=== PATIENT | male | born 2005 | race African-American/Black ===

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

== ENCOUNTER 2023-01-04 11:44 | Emergency (ER) | payer OTHER, SELFPAY ==
[2023-01-04 12:09] VITALS: BP 117/71; PULSE 73; RESP 16; TEMP 36.6; O2SAT 97; BMI 26.7
--- NOTE | 2023-01-04 12:09 | ED_ITS ---
HPI - Abdominal Pain General Chief Complaint: Abdominal Pain Stated Complaint: Constipated X 4 Days Time Seen by Provider: 01/04/23 13:21 Related Data Previous Rx's Medication Instructions Recorded doxycycline hyclate 100 mg tablet 100 mg PO BID 7 days #14 tabs 11/06/22 ibuprofen 600 mg tablet 600 mg PO Q6H PRN pain #14 tabs 12/06/22 dicyclomine 20 mg tablet 20 mg PO TID PRN abdominal pain 12/18/22 #20 tabs magnesium citrate 300 ml PO ONCE #296 mL 01/04/23 polyethylene glycol 3350 17 gram 17 g PO BEDTIME #14 ea 01/04/23 oral powder packet (Miralax) Allergies Allergy/AdvReac Type Severity Reaction Status Date / Time No Known Allergies Allergy Verified 12/06/22 14:36 [facility] Social History Social History Alcohol intake: never Smoked in Last 30 Days: No Use of substances other than those prescribed or required for medical reasons: No Advance Directives: No Advance Directives Information Provided: No Physical Exam ED Vital Signs: BMI result Body Mass Index 26.7 Course Course Course Narrative: RME - 17 yo male presents to the ER with lower abdominal pain and constipation for the last 4 days. He reports blood in the bowl x1 when he was straining yesterday. Passed a small amount of hard stool yesterday. No vomiting. No hx hemorrhoids. Normal bowel sounds and abd soft in triage. Will get rectal exam in the main ER, most likely hemorrhoids associated w/ constipation. Hold off on labs and imaging for now, can defer to main ER provider. Medical Decision Making Lab Data Labs: Lab Results 01/04/23 Range/Units 13:56 Stool Occult Blood NEGATIVE (NEGATIVE) Discharge Plan Discharge Clinical Impression: Constipation Patient Disposition: Home, Self-Care Instructions: Constipation (ED) Additional Instructions: Take MiraLax every night before bed for the next 2 weeks. Take magnesium citrate, the entire bottle in 1 day. Increase fiber intake through diet or supplementation Increased water intake Return for new or worsening symptoms, especially fevers, or severe abdominal pain Prescriptions: New polyethylene glycol 3350 [Miralax] 17 gram powder in packet 17 g PO BEDTIME Qty: 14 0RF magnesium citrate Solution 300 ml PO ONCE Qty: 296 0RF No Action ibuprofen 600 mg tablet 600 mg PO Q6H PRN (Reason: pain) Qty: 14 0RF dicyclomine 20 mg tablet 20 mg PO TID PRN (Reason: abdominal pain) Qty: 20 0RF doxycycline hyclate 100 mg tablet 100 mg PO BID 7 Days Qty: 14 0RF Stand Alone Forms: Work/School Release Interventions: ED Discharge Assessment Last Done: 01/04/23 14:26 Discharge Date/Time: 01/04/23 14:27
[2023-01-04 13:23] VITALS: BP 131/64; PULSE 68; RESP 16; TEMP 36.3; O2SAT 99
--- NOTE | 2023-01-04 13:55 | ED_ITS ---
HPI - General Adult General Chief complaint: Abdominal Pain Stated complaint: Constipated X 4 Days Time Seen by Provider: 01/04/23 13:21 Source: patient and RN notes reviewed Mode of arrival: ambulatory Limitations: no limitations History of Present Illness HPI narrative: 17-year-old male who denies any past medical history presents for evaluation of constipation. Patient reports he has felt constipated for the last 4 days He reports he is able to have a small bowel movement yesterday he noticed a small amount of blood on toilet paper when wiping reports mild 2/10 left lower abdominal pain Denies any rectal pain Any fevers, chills and diarrhea He took [id number] Senna without relief of his symptoms Denies any receptive anal sex Related Data Previous Rx's Medication Instructions Recorded doxycycline hyclate 100 mg tablet 100 mg PO BID 7 days #14 tabs 11/06/22 ibuprofen 600 mg tablet 600 mg PO Q6H PRN pain #14 tabs 12/06/22 dicyclomine 20 mg tablet 20 mg PO TID PRN abdominal pain 12/18/22 #20 tabs magnesium citrate 300 ml PO ONCE #296 mL 01/04/23 polyethylene glycol 3350 17 gram 17 g PO BEDTIME #14 ea 01/04/23 oral powder packet (Miralax) Allergies Allergy/AdvReac Type Severity Reaction Status Date / Time No Known Allergies Allergy Verified 12/06/22 14:36 Review of Systems Constitutional: Constitutional: Reports as per HPI, Denies chills and Denies fatigue Cardiovascular: Cardiovascular: Denies chest pain and Denies dyspnea Respiratory: Respiratory: Denies cough and Denies dyspnea Gastrointestinal: Gastrointestinal: Reports abdominal pain, Reports constipation and Denies vomiting Genitourinary: Genitourinary: Denies difficulty urinating and Denies dysuria Endocrine: Endocrine: Denies fatigue [facility] Social History Social History Alcohol intake: never Smoked in Last 30 Days: No Use of substances other than those prescribed or required for medical reasons: No Advance Directives: No Advance Directives Information Provided: No Physical Exam ED Vital Signs: Vital Signs - 24 hr 01/04/23 12:09 01/04/23 13:23 Temperature 97.9 F 97.3 F Pulse Rate 73 68 Respiratory Rate 16 16 Blood Pressure 117/71 131/64 Pulse Oximetry 97 99 Oxygen Delivery Method Room Air Room Air BMI result Body Mass Index 26.7 Const General: healthy appearing, comfortable, no acute distress, alert and awake Nutritional Appearance: well nourished Orientation/consciousness: patient oriented x3 Eyes Eyelids: Yes eyelids normal Conjunctivae: conjunctivae normal Sclerae: sclerae normal Corneas: corneas normal Pupils: Equal, round and reactive pupils present EOM: EOMs intact bilaterally Resp Effort & Inspection: normal respiratory effort, able to speak in complete sentences, no audible wheezes and not labored GI Inspection: Yes normal to inspection Palpation (GI): Soft to palpation, Tenderness to palpation present (GI) in the LLQ; not in the RLQ, not in the LUQ, not in the RUQ, not at McBurney's point, Trotter's sign negative, with no rebound tenderness and Rovsing's sign negative and no guarding Auscultation: normal bowel sounds Rectal Exam - Male: Yes visual inspection normal, Yes normal sphincter tone, No External hemorrhoid(s) present and No fecal impaction Skin General skin exam: no rashes or lesions noted and elasticity normal Lesions: no lesions Rashes: no rashes Neuro General: patient oriented x3 Cranial nerves: Yes Equal, round and reactive pupils present Extrem General: Yes full ROM Medical Decision Making Medical Decision Making MDM Narrative: This is a 17-year-old male who denies any past medical history presents for evaluation of reported constipation for last 4 days. He reports a small amount of blood when wiping. There is no obvious: Exam: No external hemorrhoids, no palpable lesion the rectal exam. Patient does have mild left lower quadrant abdominal tenderness otherwise abdomen is soft nondistended. He has no rebound or guarding. No fevers or chills, though signs are stable. An occult blood stool sample was sent to the lab to evaluate for rectal bleeding. Clinically the patient likely has simple constipation with possibly some proctitis from straining to use the bathroom but there is no evidence of external hemorrhoids. And very low suspicion for diverticulitis/colitis his incision has no diarrhea, mild symptoms, reassuring abdominal exam he is afebrile. No right lower quadrant tenderness to raise suspicion for acute appendicitis. Patient's stool sample is negative. We ronak discharge the patient with miralax and magnesium citrate Differential Diagnosis Differential Diagnoses: The differential diagnosis associated with the presentation includes (Constipation,colitis, diverticulitis, fecal infection, proctitis, hemorrhoids) Constipation Lab Data Labs: Lab Results 01/04/23 Range/Units 13:56 Stool Occult Blood NEGATIVE (NEGATIVE) Discharge Plan Discharge Clinical Impression: Constipation Patient Disposition: Home, Self-Care Instructions: Constipation (ED) Additional Instructions: Take MiraLax every night before bed for the next 2 weeks. Take magnesium citrate, the entire bottle in 1 day. Increase fiber intake through diet or supplementation Increased water intake Return for new or worsening symptoms, especially fevers, or severe abdominal pain Prescriptions: New polyethylene glycol 3350 [Miralax] 17 gram powder in packet 17 g PO BEDTIME Qty: 14 0RF magnesium citrate Solution 300 ml PO ONCE Qty: 296 0RF No Action ibuprofen 600 mg tablet 600 mg PO Q6H PRN (Reason: pain) Qty: 14 0RF dicyclomine 20 mg tablet 20 mg PO TID PRN (Reason: abdominal pain) Qty: 20 0RF doxycycline hyclate 100 mg tablet 100 mg PO BID 7 Days Qty: 14 0RF
[2023-01-04 14:03] LABS: OBS Int Ctl Valid YES; OBS1 NEGATIVE (NEGATIVE)
== END 2023-01-04 14:27 | disposition home or self-care (01) ==
PROVIDERS: Physician Assistant; Emergency Provider Emergency Medicine
DX: K59.00 Constipation, unspecified (principal)
CPT/HCPCS: 82272; 99283; 99284

== ENCOUNTER 2023-03-13 02:24 | Emergency (ER) | payer MEDICAID, SELFPAY ==
[2023-03-13 02:30] VITALS: BP 118/71; PULSE 58; RESP 14; TEMP 36.8; O2SAT 100; BMI 27.1
--- NOTE | 2023-03-13 02:44 | ED_ITS ---
HPI - General Adult General Chief complaint: Upper Respiratory Symptoms Stated complaint: elizabeth is brown Time Seen by Provider: 03/13/23 02:32 Source: patient Mode of arrival: ambulatory Limitations: no limitations History of Present Illness HPI narrative: 88-year-old male presents with brown mucus production. Symptoms started 3 weeks ago. He had been treated with amoxicillin. Symptoms have been consistent on a daily basis for the past 3 weeks. He reports sinus drainage, postnasal drip, occasional green mucus. Denies any fevers or chills. Occasionally has a cough. He denies any chest pain. He reports some sinus pressure in the maxillary area. The pressure is [id number] nature. There is no clear relieving or exacerbating features. Symptoms do not radiate. Related Data Home Medications Medication Instructions Recorded Confirmed amitriptyline 10 mg tablet 10 mg PO BEDTIME 01/21/23 naproxen 500 mg tablet 500 mg PO BID 01/21/23 Previous Rx's Medication Instructions Recorded amoxicillin 875 mg-potassium 1 tab PO BID #14 tabs 03/13/23 clavulanate 125 mg tablet fexofenadine 180 mg tablet 180 mg PO DAILY #10 tabs 03/13/23 (Irma Allergy) fluticasone propionate 50 1 spray intranasal DAILY #16 grams 03/13/23 mcg/actuation nasal spray,suspension (Flonase Allergy Relief) pseudoephedrine HCl 120 mg 120 mg PO Q12H PRN nasal 03/13/23 tablet,extended release (Sudafed congestion #14 tabs 12 Hour) Allergies Allergy/AdvReac Type Severity Reaction Status Date / Time No Known Allergies Allergy Verified 03/13/23 02:35 [facility] Past Medical History Medical History Hydrocele Social History Social History Alcohol intake: never Advance Directives: No Advance Directives Information Provided: Yes Physical Exam ED Vital Signs: Vital Signs - 24 hr 03/13/23 02:30 Temperature 98.2 F Pulse Rate 58 Respiratory Rate 14 Blood Pressure 118/71 Pulse Oximetry 100 Oxygen Delivery Method Room Air BMI result Body Mass Index 27.1 GEN: Well developed, no acute distress, alert, oriented HEENT: Normocephalic, atraumatic, normal external ears, nose appears normal, no oropharyngeal edema or exudates Eyes: Normal to appearance Neck: Supple, no lymphadenopathy Respiratory: Talks in complete sentences, no respiratory distress, clear to auscultation bilaterally Cardiovascular: Regular rate and rhythm, no murmurs rubs or gallops Abdomen: Soft, nontender, nondistended, no guarding, no rebound Back: No CVA tenderness Extremities: No clubbing cyanosis or edema Neurologic: No focal neurologic deficits, cranial nerves 2-12 intact, strength is 5/5 bilaterally Skin: No rash Course Course Course Narrative: 17-year-old male presenting with sinus pressure, postnasal drip, cough, brown mucus production. Symptoms are most consistent with acute sinusitis. Will treat with Augmentin, Flonase common Sudafed, antihistamines. He can follow-up with his primary care provider in 1 week for continued symptoms. Medical Decision Making Medical Decision Making MDM Narrative: 88-year-old male presents with symptoms consistent with acute sinusitis. Examination was benign and unremarkable. Will treat patient with Augmentin, Flonase, antihistamines, Sudafed. Patient can follow up with his primary care provider in 1 week if needed. Differential Diagnosis Differential Diagnoses: The differential diagnosis associated with the presentation includes (Sinusitis, viral syndrome, bronchitis, pneumonia, upper respiratory infection) Prescription Management I considered prescription management with: Antibiotic Discharge Plan Discharge Clinical Impression: Sinusitis Patient Disposition: Home, Self-Care Instructions: Sinusitis (ED) Prescriptions: New amoxicillin-pot clavulanate 875-125 mg tablet 1 tab PO BID Qty: 14 0RF fluticasone propionate [Flonase Allergy Relief] 50 mcg/actuation spray,suspension 1 spray intranasal DAILY Qty: 16 0RF Rx Instructions: administer into each nostril pseudoephedrine HCl [Sudafed 12 Hour] 120 mg tablet extended release 120 mg PO Q12H PRN (Reason: nasal congestion) Qty: 14 0RF fexofenadine [Irma Allergy] 180 mg tablet 180 mg PO DAILY Qty: 10 0RF No Action amitriptyline 10 mg tablet 10 mg PO BEDTIME naproxen 500 mg tablet 500 mg PO BID Referrals: Physician,Unknown J [Primary Care Provider] - 1 week
== END 2023-03-13 02:57 | disposition home or self-care (01) ==
PROVIDERS: Emergency Provider Emergency Medicine
DX: J32.0 Chronic maxillary sinusitis (principal)
CPT/HCPCS: 99282; 99283

== ENCOUNTER 2023-05-13 22:22 | Emergency (ER) | payer OTHER, SELFPAY ==
--- NOTE | ~2023-05-13 | US_ITS ---
EXAMINATION: US SCROTUM CLINICAL INFORMATION: Testicular pain, bilateral scrotal discomfort. COMPARISON: Ultrasound scrotum 11/29/2022 TECHNIQUE: A sonogram of the scrotum was performed assessing angela-scale appearance and color Doppler flow. Spectral Doppler analysis of the arterial and venous flow were performed in the testes bilaterally. FINDINGS: RIGHT: Right testicle measures 4.7 x 2.1 x 3.0 cm, volume 15.2 mL. No focal testicular parenchymal lesions are visualized. Spectral Doppler analysis of the arterial and venous flow is normal in the right testis. There is small calcification seen posterior to right testes likely a small scrotal kvng. Right epididymal head is normal in size. No right hydrocele or varicocele is seen. Right epididymal Doppler flow is normal. LEFT: Left testicle measures 4.8 x 2.3 x 2.1 cm, volume 18.2 mL. No focal testicular parenchymal lesions are visualized. Spectral Doppler analysis of the arterial and venous flow is normal in the left testis. Left epididymal head is normal in size. No left hydrocele or varicocele is seen. Left epididymal Doppler flow is normal. Incidental finding of left subdural cyst measuring 0.3 x 0.3 x 0.3 cm epididymal cyst. There is a small hypoechoic area measuring 0.5 x 0.3 x 0.7 cm above the penis likely a small lymph node. This is the palpable lump as per the patient. US/US scrotum doppler IMPRESSION: 1. Small right epididymal cyst. 2. Small right scrotal kvng. 3. Normal Doppler flow seen to both testes and epididymis. 4. Palpable lesion is small hypoechoic area along the penis. This may represent a small lymph node.
--- NOTE | ~2023-05-13 | US_ITS ---
EXAMINATION: US SCROTUM CLINICAL INFORMATION: Testicular pain, bilateral scrotal discomfort. COMPARISON: Ultrasound scrotum 11/29/2022 TECHNIQUE: A sonogram of the scrotum was performed assessing angela-scale appearance and color Doppler flow. Spectral Doppler analysis of the arterial and venous flow were performed in the testes bilaterally. FINDINGS: RIGHT: Right testicle measures 4.7 x 2.1 x 3.0 cm, volume 15.2 mL. No focal testicular parenchymal lesions are visualized. Spectral Doppler analysis of the arterial and venous flow is normal in the right testis. There is small calcification seen posterior to right testes likely a small scrotal kvng. Right epididymal head is normal in size. No right hydrocele or varicocele is seen. Right epididymal Doppler flow is normal. LEFT: Left testicle measures 4.8 x 2.3 x 2.1 cm, volume 18.2 mL. No focal testicular parenchymal lesions are visualized. Spectral Doppler analysis of the arterial and venous flow is normal in the left testis. Left epididymal head is normal in size. No left hydrocele or varicocele is seen. Left epididymal Doppler flow is normal. Incidental finding of left subdural cyst measuring 0.3 x 0.3 x 0.3 cm epididymal cyst. There is a small hypoechoic area measuring 0.5 x 0.3 x 0.7 cm above the penis likely a small lymph node. This is the palpable lump as per the patient. US/US scrotum IMPRESSION: 1. Small right epididymal cyst. 2. Small right scrotal kvng. 3. Normal Doppler flow seen to both testes and epididymis. 4. Palpable lesion is small hypoechoic area along the penis. This may represent a small lymph node.
[2023-05-13 22:27] VITALS: BP 122/77; PULSE 68; RESP 18; TEMP 36.4; O2SAT 96; BMI 29.2
[2023-05-14] VITALS: BP 124/71; PULSE 58; RESP 16; TEMP 36.9; O2SAT 98
--- NOTE | 2023-05-14 00:34 | ED.MALEGU ---
HPI - Male Genitourinary General Chief complaint: Urogenital-Male Stated complaint: Lump in private area Time Seen by Provider: 05/14/23 00:33 Source: patient Mode of arrival: ambulatory Limitations: no limitations History of Present Illness HPI Narrative: 17-year-old male presents with a lump to the right inguinal region which he noticed yesterday, he also reports vague complaints of bilateral scrotal pain since yesterday, he tells me what is bothering him most is the lump in the inguinal region initially thought this was an ingrown hair however seems a little bit different. Patient denies changes in urination, fevers, chills, nausea, vomiting, abdominal pain, penile pain or discharge, concerns for STDs or STIs, chest pain, shortness of breath.HX of hydroceles. Related Data Home Medications Medication Instructions Recorded Confirmed amitriptyline 10 mg tablet 10 mg PO BEDTIME 01/21/23 naproxen 500 mg tablet 500 mg PO BID 01/21/23 Previous Rx's Medication Instructions Recorded amoxicillin 875 mg-potassium 1 tab PO BID #14 tabs 03/13/23 clavulanate 125 mg tablet fexofenadine 180 mg tablet 180 mg PO DAILY #10 tabs 03/13/23 (Irma Allergy) fluticasone propionate 50 1 spray intranasal DAILY #16 grams 03/13/23 mcg/actuation nasal spray,suspension (Flonase Allergy Relief) pseudoephedrine HCl 120 mg 120 mg PO Q12H PRN nasal 03/13/23 tablet,extended release (Sudafed congestion #14 tabs 12 Hour) cephalexin 500 mg tablet 500 mg PO Q6H 10 days #40 tabs 05/14/23 prednisone 20 mg tablet 40 mg PO DAILY 5 days #10 tabs 05/14/23 Allergies Allergy/AdvReac Type Severity Reaction Status Date / Time No Known Allergies Allergy Verified 03/13/23 02:35 Review of Systems Review of Systems: Constitutional : No Weight loss, No Fever, No Chills, No Fatigue, No Malaise ENT/Mouth : No sore throat, No Rhinorrhea Eyes: No Eye Pain, No Swelling, No Redness Cardiovascular : No Chest Pain, No SOB, No Dyspnea on Exertion, No Orthopnea, No Edema, No Palpitations Respiratory : No Cough, No Sputum, No Wheezing Gastrointestinal : No Nausea, No Vomiting, No Diarrhea, No Constipation, No abdominal Pain, No Hematochezia, No Melena Genitourinary : No Dysuria, No Urinary Frequency, No Hematuria, Musculoskeletal : No joint pain, No Myalgias, No Joint Swelling Skin : No Skin Lesions, No rash Neuro : No Weakness, No Numbness, No Dizziness, No Headache Psych : No Anxiety/Panic, No Depression All other systems reviewed and are negative Yes all other systems are reviewed and are negative [facility] Past Medical History Attestation statement: The following information was validated with the patient. Source: old records reviewed and nursing notes reviewed Medical History Hydrocele Social History Social History Alcohol intake: never Advance Directives: No Advance Directives Information Provided: Yes Physical Exam Vital Signs: Vital Signs: Last Vital Signs Temp 98.2 F 05/14/23 01:26 Pulse 56 05/14/23 01:26 Resp 16 05/14/23 01:26 BP 126/55 L 05/14/23 01:26 Pulse Ox 98 05/14/23 01:26 O2 Del Method Room Air 05/14/23 01:26 BMI result Body Mass Index 29.2 vss Appearance: Alert.? Oriented X3.? No acute distress.? Head: Normocephalic, atraumatic, no step-offs or deformities Eyes: Pupils equal, round and reactive to light.? Neck: Normal inspection.? Neck supple.? CVS: Normal heart rate and rhythm.? Pulses normal.? Respiratory: No respiratory distress.? Breath sounds normal.? Abdomen: Soft and nontender.? Skin: Skin warm and dry.? Normal skin color.? Normal skin turgor.? Extremities: No lower extremity edema.? No calf ttp. 5/5 strength to bilateral upper and lower extremities Neuro: Oriented X 3.? No motor deficit.? No sensory deficit. CN 2-12 intact Sensative exam: There is right-sided inguinal lymphadenopathy on exam. No overlying skin changes. Mild tenderness palpation of bilateral scrotum. Normal external genitalia, no lesions lumps or masses. No palpable hernias. Course Reevaluation(s) Reevaluation #1: Sign out to pending scans, ua Time: 00:55 Reevaluation #2: I assumed care of this patient from my colleague, physician speech correction assistant Kameron Lucas at 02:00 hours. Patient's urinalysis was negative. Patient's scrotal duplex ultrasound was negative for torsion. The patient be discharged home and started on Keflex and prednisone. Medical Decision Making Medical Decision Making [facility] Narrative: 0035 17-year-old male presents with concerns that his a lump in his genital region, discovered yesterday. Physical exam significant for There is right-sided inguinal lymphadenopathy on exam. No overlying skin changes. Mild tenderness palpation of bilateral scrotum. Normal external genitalia, no lesions lumps or masses. No palpable hernias. Concerns for likely lymphadenopathy, patient denies concerns for STDs unlikely STDs. Will rule out torsion although unlikely. Patient with history of hydroceles, this could also be hydroceles. Unlikely UTI Plan , UA, Neisseria gonorrhea chlamydia Trichomonas testing, Doppler Differential Diagnosis Differential Diagnoses: The differential diagnosis associated with the presentation includes Concerns for likely lymphadenopathy, patient denies concerns for STDs unlikely STDs. Will rule out torsion although unlikely. Patient with history of hydroceles, this could also be hydroceles. Unlikely UTI Admission/Observation Consideration of admission/observation: Escalation of care including admission/observation considered unlikely Lab Data [facility] Lab Attestation statement: I reviewed the patient's lab results. My interpretation patient's urinalysis is is as follows: Negative for urinary tract infection Labs: Lab Results 05/14/23 Range/Units 01:29 Urine Color Yellow Urine Appearance Clear Urine pH 6.0 (5.0-9.0) Ur Specific [place] 1.020 (1.005-1.025) Urine Protein Negative (Neg-Trace) mg/dL Urine Glucose (UA) Negative (Negative) mg/dL Urine Ketones Negative (Negative) mg/dL Urine Blood Negative (Negative) Urine Nitrite Negative (Negative) Ur Leukocyte Esterase Negative (Negative) Urine RBC 0-2 (0-2) /HPF Urine WBC 0-5 (0-5) /HPF Ur Squamous Epith Cells 0-2 (0-2) /HPF Urine Bacteria None Seen (None Seen) Hyaline Casts 0-2 (0-2) /LPF Independent Interpretation I performed an independent interpretation of an: Ultrasound Radiology Impression Discussion of test interpretation with radiology: I have reviewed the radiologist's reading. Radiologist Impression: US scrotum IMPRESSION: 1. Small right epididymal cyst. 2. Small right scrotal kvng. 3. Normal Doppler flow seen to both testes and epididymis. 4. Palpable lesion is small hypoechoic area along the penis. This may represent a small lymph node. Dictated By:Demetrius Medina MD Core Measures AMI core measures followed: Yes Measure exclusions: not indicated Critical Care Time Critical Care Time Critical Care Time: No Discharge Plan Discharge Clinical Impression: Inguinal lymphadenopathy, Pain in scrotum Patient Disposition: Home, Self-Care Instructions: Lymphadenopathy (ED), Scrotal Pain (ED) Additional Instructions: Your urinalysis was normal. The duplex ultrasound of your scrotum/testicles did not reveal a clear cause for your symptoms. You do have a small right epidermal cyst. Sometimes testicular pain the lymph node are caused by either a viral infection or a bacterial infection. I am treating you with an antibiotic called Keflex (cephalexin). Take Keflex (cephalexin) 500 mg pills, 1 pill 4 times a day for 10 days. Take prednisone 20 mg pills, 3 pills once a day for 5 days. While you are taking prednisone, do not take any NSAIDs (Motrin, Advil, ibuprofen, Aleve, naproxen). Take Tylenol (acetaminophen) 500 mg pills, 2 pills every 4 to 6 hours as needed for pain. Follow-up with your primary care provider this week. Follow-up with urology, if your pain is not getting better or getting worse Return to the emergency department with new or worsening symptoms. Such as fevers, chills, chest pain, shortness of breath, nausea, vomiting, dizziness, headache, vision changes, lethargy In case of emergency call 911 Take your medications as prescribed. If you were prescribed antibiotics today, it is important that you take your medication to their entirety, do not skip any doses, do not finish them early. Prescriptions: New cephalexin 500 mg tablet 500 mg PO Q6H 10 Days Qty: 40 0RF prednisone 20 mg tablet 40 mg PO DAILY 5 Days Qty: 10 0RF No Action amoxicillin-pot clavulanate 875-125 mg tablet 1 tab PO BID Qty: 14 0RF fluticasone propionate [Flonase Allergy Relief] 50 mcg/actuation spray,suspension 1 spray intranasal DAILY Qty: 16 0RF Rx Instructions: administer into each nostril pseudoephedrine HCl [Sudafed 12 Hour] 120 mg tablet extended release 120 mg PO Q12H PRN (Reason: nasal congestion) Qty: 14 0RF fexofenadine [Irma Allergy] 180 mg tablet 180 mg PO DAILY Qty: 10 0RF amitriptyline 10 mg tablet 10 mg PO BEDTIME naproxen 500 mg tablet 500 mg PO BID Referrals: [facility] [Provider Group] - 2 days Physician,Unknown J [Primary Care Provider] - 2 days Stand Alone Forms: Work/School Release
--- NOTE | 2023-05-14 01:20 | PC.NURSE ---
Pt in ultrasound at this time.
[2023-05-14 01:26] VITALS: BP 126/55; PULSE 56; RESP 16; TEMP 36.8; O2SAT 98
--- NOTE | 2023-05-14 01:31 | MHC.EDTECH ---
PATIENT URINE SAMPLE COLLECTED AND SENT TO LAB ,VITALS SIGN TAKEN ,PT RESTING QUIETLY IN BED GIRLFRIEND AT BEDSIDE .
[2023-05-14 01:38] LABS: Appearance Urine Clear; Color Urine Yellow; Glucose Urine UA Negative (Negative); Leukocyte Esterase Urine Negative (Negative); Nitrite Urine Negative (Negative); Urine Blood Negative (Negative); Urine Ketones Negative (Negative); Urine Protein Negative (Neg-Trace)
[2023-05-14 01:43] LABS: Bacteria Urine None Seen (None Seen); Hyaline Casts Urine 0-2 /LPF (0-2); RBC Urine 0-2 /HPF (0-2); Squamous Epithelial Cell Urine 0-2 /HPF (0-2); WBC Urine 0-5 /HPF (0-5)
[2023-05-14 11:42] LABS: CT PCR NOT DETECTED (Not Detect.); NG PCR NOT DETECTED (Not Detect.)
== END 2023-05-14 03:15 | disposition home or self-care (01) ==
PROVIDERS: Physician Assistant; Emergency Provider Emergency Medicine Emergency Medical Services
DX: R59.1 Generalized enlarged lymph nodes (principal); N50.82 Scrotal pain; N50.812 Left testicular pain; N50.811 Right testicular pain; N50.3 Cyst of epididymis; Z79.899 Other long term (current) drug therapy
CPT/HCPCS: 0353U; 76870; 81001; 93975; 99283; 99284

== ENCOUNTER 2023-12-15 00:26 | Emergency (ER) | payer OTHER, SELFPAY ==
--- NOTE | ~2023-12-15 | XR_ITS ---
EXAMINATION: XR SHOULDER, RIGHT CLINICAL INFORMATION: Post reduction COMPARISON: Radiographs from the same day TECHNIQUE: Two views of the right shoulder. FINDINGS: Glenohumeral alignment now appears anatomic. No acute fracture is seen. Acromioclavicular joint is intact. XR/XR shoulder RT min 2V IMPRESSION: Anatomic alignment of the glenohumeral joint.
--- NOTE | ~2023-12-15 | XR_ITS ---
EXAMINATION: XR SHOULDER, RIGHT CLINICAL INFORMATION: Fall, pain COMPARISON: None available. TECHNIQUE: Two views of the right shoulder. FINDINGS: There is anterior dislocation of the humeral head relative to the glenoid fossa. No acute fracture is seen. The acromioclavicular joint appears intact. XR/XR shoulder RT min 2V IMPRESSION: Anterior glenohumeral dislocation.
[2023-12-15 00:33] VITALS: BP 129/67; PULSE 87; RESP 18; TEMP 36.2; O2SAT 97; BMI 31.3
--- NOTE | 2023-12-15 03:43 | PC.NURSE ---
Pt is a 18 y/o male who presents for evaluation of right shoulder pain s/p fall on stairs. Pt reports getting his arm caught in the railing of the stairs and then trying to brace his fall. Right shoulder has an obvious dislocation on assessment. CSMs are intact distal to injury site. Pt denies any other complaints at this time. Denies LOC with fall. No ROM on right side.
--- NOTE | 2023-12-15 04:53 | ED_ITS ---
HPI - Extremity Problem General Chief complaint: Extremity Injury, Upper Stated complaint: dislocated shoulder Time Seen by Provider: 12/15/23 04:26 Source: patient Mode of arrival: ambulatory History of Present Illness HPI Narrative: Patient fell and feels like he dislocated his shoulder. This has never happened before. Related Data Home Medications Medication Instructions Recorded Confirmed amitriptyline 10 mg tablet 10 mg PO BEDTIME 01/21/23 naproxen 500 mg tablet 500 mg PO BID 01/21/23 Previous Rx's Medication Instructions Recorded amoxicillin 875 mg-potassium 1 tab PO BID #14 tabs 03/13/23 clavulanate 125 mg tablet fexofenadine 180 mg tablet 180 mg PO DAILY #10 tabs 03/13/23 (Irma Allergy) fluticasone propionate 50 1 spray intranasal DAILY #16 grams 03/13/23 mcg/actuation nasal spray,suspension (Flonase Allergy Relief) pseudoephedrine HCl 120 mg 120 mg PO Q12H PRN nasal 03/13/23 tablet,extended release (Sudafed congestion #14 tabs 12 Hour) cephalexin 500 mg tablet 500 mg PO Q6H 10 days #40 tabs 05/14/23 prednisone 20 mg tablet 40 mg (2 x 20 mg) PO DAILY 5 days 05/14/23 #10 tabs Allergies Allergy/AdvReac Type Severity Reaction Status Date / Time No Known Allergies Allergy Verified 03/13/23 02:35 Review of Systems Review of Systems: Pertinent positives and negatives as stated in HPI PMFSH Past Medical History Source: nursing notes reviewed Medical History Hydrocele Social History Social History Alcohol intake: never Advance Directives: No Advance Directives Information Provided: No Physical Exam Vital Signs: Vital Signs: Last Vital Signs Temp 97.2 F 12/15/23 00:33 Pulse 87 12/15/23 00:33 Resp 18 12/15/23 00:33 BP 129/67 12/15/23 00:33 Pulse Ox 97 12/15/23 00:33 O2 Del Method Room Air 12/15/23 00:33 BMI result Body Mass Index 31.3 VITAL SIGNS: Reviewed. GENERAL: Well developed, well nourished, in no acute distress. HEAD: Normocephalic/atraumatic EYES: PERRLA, EOMI LUNGS: Normal breath sounds. No adventitious sounds or accessory muscle use. SpO2<97> CARDIOVASCULAR: Regular rate and rhythm without noted murmurs ABDOMEN: Soft, non-tender, non-distended with bowel sounds. MUSCULOSKELETAL: No tenderness, deformities, or effusions noted on gross inspection. EXTREMITIES: No cyanosis, clubbing or edema. RIGHT SHOULDER: Deformed, neurovascular intact distally SKIN: Inspection of the skin reveals no rashes NEUROLOGIC: Alert and oriented x 4. Strength and sensation to light touch were grossly intact x 4. Medical Decision Making Medical Decision Making MDM Narrative: 18-year-old male with history and clinical presentation, reviewed x-ray which confirms right shoulder dislocation, helped patient reduce right shoulder with scapular massage and slow maneuvers, good positive reduction noted, patient placed in sling and postreduction films obtained which show reduction. Differential Diagnosis Differential Diagnoses: The differential diagnosis associated with the pres entation includes Please see the discussion above Admission/Observation Consideration of admission/observation: Escalation of care including admission/observation considered Please see the discussion above Radiology Impression Discussion of test interpretation with radiology: I have reviewed the radiologist's reading. Radiologist Impression: Please see the discussion above Discharge Plan Discharge Clinical Impression: Anterior dislocation of right shoulder Patient Disposition: Home, Self-Care Instructions: How to Use a Sling (ED), Shoulder Dislocation (ED) Additional Instructions: 1. You should wear the sling for the next 2 weeks, you do not have to wear it in the shower, use extra precaution when swinging your arm away from your body as this would make you more prone to dislocating it once again. 2. Please follow-up with your primary care doctor. Return to the ER for any worsening symptoms. Prescriptions: No Action cephalexin 500 mg tablet 500 mg PO Q6H 10 Days Qty: 40 0RF prednisone 20 mg tablet 40 mg PO DAILY 5 Days Qty: 10 0RF amoxicillin-pot clavulanate 875-125 mg tablet 1 tab PO BID Qty: 14 0RF fluticasone propionate [Flonase Allergy Relief] 50 mcg/actuation spray,suspension 1 spray intranasal DAILY Qty: 16 0RF Rx Instructions: administer into each nostril pseudoephedrine HCl [Sudafed 12 Hour] 120 mg tablet extended release 120 mg PO Q12H PRN (Reason: nasal congestion) Qty: 14 0RF fexofenadine [Imra Allergy] 180 mg tablet 180 mg PO DAILY Qty: 10 0RF amitriptyline 10 mg tablet 10 mg PO BEDTIME naproxen 500 mg tablet 500 mg PO BID
== END 2023-12-15 05:20 | disposition home or self-care (01) ==
PROVIDERS: Emergency Provider Student in an Organized Health Care Education/Training Program
DX: S43.004A Unspecified dislocation of right shoulder joint, initial encounter (principal); M25.511 Pain in right shoulder; X58.XXXA Exposure to other specified factors, initial encounter; Y93.9 Activity, unspecified; Y92.9 Unspecified place or not applicable; Y99.9 Unspecified external cause status
CPT/HCPCS: 73030; 99282; 99283